=== PATIENT | female | born 1930 | race Caucasian/White ===

== ENCOUNTER 2017-03-21 11:24 | Observation (INO) | payer MEDICARE, BC ==
[2017-03-21] MEDS ORDERED: NORMAL SALINE 1,000 ML IV ONE (13:16)
[2017-03-21] MEDS ORDERED: diphenhydrAMINE HCL 50 MG/ML VIAL IV ONE (13:16)
[2017-03-21] MEDS ORDERED: METOCLOPRAMIDE HCL 5 MG/ML VIAL IV ONE (13:16)
[2017-03-21 13:18] LABS: Urine Bilirubin Negative (NEGATIVE); Urine Blood Negative /ul (NEGATIVE); Urine Ketone Negative (NEGATIVE); Urine Nitrite Negative (NEGATIVE); Urine Protein Negative (NEGATIVE); Urine Urobilinogen Normal (NORMAL)
[2017-03-21 13:20] LABS: Hematocrit 38.4 % (37.0-47.0); Hemoglobin 12.6 gm/dL (12.5-16.0); Mean Corpuscular Hemoglobin 32.1 pg (27-31); Mean Corpuscular Hgb Conc 32.8 g/dl (32-36); Mean Platelet Volume 9.6 fl (6.0-9.5); Neutrophil # 5.1 K/mm3 (1.3-6.0); Neutrophil % 64.9 % (42-75.0); Platelet Count 280 K/mm3 (150-450); Red Blood Count 3.92 M/mm3 (4.2-5.4); White Blood Count 7.9 K/mm3 (4.0-10.5)
[2017-03-21] MEDS ORDERED: diphenhydrAMINE HCL 50 MG/ML VIAL ONE (13:23)
[2017-03-21] MEDS ORDERED: METOCLOPRAMIDE HCL 5 MG/ML VIAL ONE (13:23)
[2017-03-21 13:25] LABS: Urine Appearance Clear; Urine Bacteria None Seen; Urine Color Yellow; Urine RBC None Seen /hpf (0-5); Urine WBC 0-5 /hpf (0-5)
--- NOTE | 2017-03-21 13:28 | ERNOTE ---
Dizziness ER Record Date of Service: 03/21/17 Presenting Symptoms: dizziness Time Seen by Provider: 03/21/17 12:59 Source: patient Exam Limitations: no limitations Immunizations: IMMUNIZATION HX Immunizations Up to Date No History of Influenza Vaccine No Hx Pneumococcal Vaccination No Allergies/Adverse Reactions: Allergies Allergy/AdvReac Type Severity Reaction Status Date / Time No Known Allergies Allergy Verified 03/21/17 11:44 Home Medications: HOME MEDICATIONS Acetaminophen [Tylenol] 650 mg PO BID 11/10/15 [Last Taken Unknown] Aspirin [Aspirin Chewable] 81 mg PO DAILY 11/10/15 [Last Taken Unknown] Enalapril Maleate [Vasotec] 20 mg PO DAILY 11/10/15 [Last Taken Unknown] Metoprolol Succinate [Toprol Xl] 25 mg PO DAILY 11/10/15 [Last Taken Unknown] Pravastatin Sodium [Pravachol] 40 mg PO HS 11/10/15 [Last Taken Unknown] Cholecalciferol [Vitamin D] 1,000 unit PO DAILY 03/21/17 [Last Taken Unknown] Glucosamine HCl/Chondr Landry A Na [Osteo Bi-Flex Caplet] 1 each PO DAILY 03/21/17 [ Last Taken Unknown] - History of Present Illness Narrative: Pt. comes in with c/o dizziness and headache for two days. Pt. states taht her L hinduism has been hurting her and the dizziness comes in waves but is not changed with position or movement. Pt. states that she has had two falls in the recent past related to RLE weakness from spinal stenosis and neuropathy. Pt. denies any NVD, fever, CP, palpitations, or new weakness, numbness, and tingling. Pt. denies any prehospital treatment. Review of Systems - Review of Systems Constitutional: Present: no symptoms reported. Absent: fever, chills, weakness , fatigue, malaise EYE: Present: no symptoms reported. Absent: eye pain, eye discharge, blurred vision, double vision, vision changes ENT: Present: no symptoms reported. Absent: nose pain, nose congestion, nasal drainage, sore throat Respiratory: Present: no symptoms reported. Absent: shortness of breath, cough , wheezing Cardiology: Present: no symptoms reported. Absent: chest pain, palpitations, syncope, edema Gastrointestinal/Abdominal: Present: no symptoms reported. Absent: nausea, vomiting, diarrhea, abdominal pain Genitourinary: Present: no symptoms reported. Absent: frequency, decreased urinary output Musculoskeletal: Present: no symptoms reported. Absent: back pain, joint pain Skin: Present: no symptoms reported. Absent: rash, change in color Neurological: Present: headache, dizziness/light-headedness. Absent: numbness, tingling All Other Systems: All systems neg except as marked - Patient's Past Medical History Patient History - Medical: Arthritis Patient History - Cardiac/Respiratory: Hypertension, Hyperlipidemia Patient History - Cancer: Colon Patient History - Surgical Procedures: Cardiac stent, Tubal Ligation, T & A Patient History - Other: None - Social History Living Situations: home Psych History: No pertinent hx Smoking Status: Never smoker - Immunizations Immunizations Up to Date: No Hx Pneumococcal Vaccination: No History of Influenza Vaccine: No Physical Exam - Physical Exam General Appearance: Present: wd/wn, alert, no apparent distress Head Exam: Present: normal inspection, no evidence of injury Eye Exam: Normal inspection: bilateral, PERRL: bilateral, EOMI: bilateral Ears, Nose, Throat: Present: normal ENT inspection, normal pharynx Neck: Present: normal inspection, nontender. Absent: lymphadenopathy (R), lymphadenopathy (L) Respiratory: Present: no respiratory distress, normal breath sounds, no accessory muscle use, chest nontender, lungs clear Cardiovascular/Chest: Present: regular rate, rhythm, no murmur, normal peripheral pulses Gastrointestinal/Abdominal: Present: normal bowel sounds, nontender, nondistended, soft, no organomegaly Back Exam: Present: normal inspection, normal range of motion, no CVA tenderness , no vertebral tenderness Extremity Exam: Present: normal inspection, non-tender, normal range of motion, no edema Neurological Exam: Present: alert, oriented, normal mood/affect, no motor/ sensory deficits, wicker worker II-XII nml as tested, other - rhomberg positive, eppley negative Skin Exam: Present: normal color, warm/dry. Absent: pallor, skin rash ED Progress - Date and Time Seen: Date and Time: 03/21/17 13:27 As pt. has had multiple recent falls with head injury and has non reproducible dizziness and godoy positive rhomberg feel that pt. needs CT of her head. 03/21/17 15:[address] results [address] Dr Hannah and she would like pt. admitted to hospital for acute lacunar infarct CVA. - Results and Orders Patient's Lab Results:: I have reviewed the patient's lab results. - Vital Signs Patient's Vital Signs:: I have reviewed the patient's vital signs. Vital Signs: Vital Signs 03/21/17 11:41 Temperature 36.7 C Pulse Rate 59 L Respiratory 14 Rate Blood Pressure 184/77 O2 Sat by Pulse 99 Oximetry - EKG EKG: RBBB, other - sinus ag EKG read: Reviewed by me EKG Comments: interp by Dr Livingston - CT/Ultrasound CT/Ultrasound Narrative: CT head notable for possible small lacuner infarct acute, subacute or chronic. CT chest without any PE. - Progress/Reassessment Chief Complaint: Dizziness Progress:: Unchanged Departure Clinical Impression: Lacunar infarct, acute - Departure Disposition: [facility] Condition: Fair Referrals: Ovidio Lopez MD [Primary Care Provider] -
[2017-03-21 13:39] LABS: Troponin I Less than 0.017 ng/ml (0.00-0.10)
[2017-03-21 13:42] LABS: ALT 18 U/L (19-67); AST 17 U/L (0-48); Albumin * 3.9 gm/dl (3.4-5.0); Alkaline Phosphatase * 76 U/L (50-170); Anion Gap 13.9 mmol/L (6.8-13.8); BUN/Creatinine Ratio 18.3 (9.0-21.6); Bilirubin, Total 0.4 mg/dL (0.0-1.1); Blood Urea Nitrogen 20 mg/dL (3-23); Ca. Corrected For Albumin 8.9 mg/dL (8.4-10.2); Calcium * 9.1 mg/dL (7.9-10.9); Carbon Dioxide 26.4 mmol/L (24-32.6); Chloride 102 mmol/L (97-106); Glucose * 91 mg/dL (70-110); Magnesium 1.8 mg/dL (1.2-2.8); Potassium 4.3 mmol/L (3.4-4.6); Sodium 138 mmol/L (132-142); TSH * 0.593 uIU/mL (0.358-3.74)
[2017-03-21] MEDS ORDERED: hydrALAZINE HCL 20 MG/ML VIAL ONE (16:02)
[2017-03-21] MEDS ORDERED: hydrALAZINE HCL 20 MG/ML VIAL IV ONE (16:02)
[2017-03-21] MEDS ORDERED: ACETAMINOPHEN 325 MG TABLET PO PRN (17:19)
[2017-03-21] MEDS: CLOPIDOGREL BISULFATE 75 MG TABLET PO SCH (17:32)
[2017-03-21] MEDS: ATORVASTATIN CALCIUM 40 MG TABLET PO SCH ×2 (17:32→20:07)
[2017-03-21] MEDS ORDERED: hydrALAZINE HCL 20 MG/ML VIAL IV PRN (17:44)
[2017-03-21] MEDS: METOPROLOL SUCCINATE 25 MG TABLET.SA PO SCH (18:07)
[2017-03-21] MEDS: ENALAPRIL MALEATE 20 MG TABLET PO SCH (18:07)
--- NOTE | 2017-03-21 20:31 | HP ---
Chief Complaint - Chief Complaint Date of Service: 03/21/17 Time of Service: 20:12 Chief Complaint: Dizziness History of Present Illness: 86 years old female adm to the hospital from the ER with reports of dizziness. Per family pt was at home doing light activity when she felt dizzy. She sat for a short time and resume work but later felt even worst. Family was concerned and brought her to the ER. She denies slurred speech, difficulty swallowing, weakness, headaches and blurred vision. Per family pt have history of frequent falls, 8 months ago she had a fall and sustained concussion. At the time pt stated she was feeling a little dizzy prior to fall but then it went away. pt stated she is compliant with her home medications , however blood pressure remain elevated despite its use. She report having an occasional beer daily or every other day 1-6 bottles. PMH significant for [place] with stents,hypertension, hyperlipidemia and colon cancer. In ER Ct head: small subcentimeter hypodensity of the right basal ganglia region. Possible small lacunar infract either acute, sub-acute or chronic. Blood pressure on adm 206/69 hydralazine given. Plan for adm an do CVA work up. Plan of care discussed with pt and family they verbalized understanding and agrees. - Patient's Past Medical History Patient History - Medical: Arthritis, Other - spinal stenosis Patient History - Cardiac/Respiratory: Hypertension, Hyperlipidemia, Myocardial Infarction - with stents Patient History - Cancer: Colon - resection Patient History - Surgical Procedures: Cataracts, Cardiac stent, Tubal Ligation , T & A Patient History - Other: None - Social History Living Situations: alone Abuse History: No History of abuse Psych History: No pertinent hx Smoking Status: Never smoker Have you smoked in the past 12 months: No Alcohol Use: occasionally Drug Use: none - Immunizations Immunizations Up to Date: No Hx Pneumococcal Vaccination: No History of Influenza Vaccine: No Review Of Systems (GEN) - Review of Systems Generalized/Overall Review: Present: No Symptoms Reported EENTM: Present: No Symptoms Reported Respiratory: Present: No Symptoms Reported Cardiac: Present: No Symptoms Reported Abdominal: Present: No Symptoms Reported Genitourinary: Present: No Symptoms Reported Musculoskeletal: Present: No Symptoms Reported Neurological: Present: No Symptoms Reported Skin: Present: No Symptoms Reported Immunizations: IMMUNIZATION HX Immunizations Up to Date No History of Influenza Vaccine No Hx Pneumococcal Vaccination No Allergies/Adverse Reactions: Allergies Allergy/AdvReac Type Severity Reaction Status Date / Time No Known Allergies Allergy Verified 03/21/17 11:44 Home Medications: HOME MEDICATIONS Acetaminophen [Tylenol] 650 mg PO BID 11/10/15 [Last Taken Unknown] Aspirin [Aspirin Chewable] 81 mg PO DAILY 11/10/15 [Last Taken Unknown] Enalapril Maleate [Vasotec] 20 mg PO DAILY 11/10/15 [Last Taken Unknown] Metoprolol Succinate [Toprol Xl] 25 mg PO DAILY 11/10/15 [Last Taken Unknown] Pravastatin Sodium [Pravachol] 40 mg PO HS 11/10/15 [Last Taken Unknown] Cholecalciferol [Vitamin D] 1,000 unit PO DAILY 03/21/17 [Last Taken Unknown] Glucosamine HCl/Chondr Landry A Na [Osteo Bi-Flex Caplet] 1 each PO DAILY 03/21/17 [ Last Taken Unknown] Exam - Exam Vital Signs: Vital Signs - Last Taken Temp 36.3 C L 03/21/17 16:23 Pulse 68 03/21/17 20:00 Resp 17 03/21/17 20:00 BP 174/60 03/21/17 20:00 Pulse Ox 100 03/21/17 16:23 Constitutional: Present: Alert, Oriented x3, Cooperative, Well developed, Elderly ENT Exam: Present: normal ENT inspection Eye Exam: bilateral eye: normal inspection Neck: Present: full range of motion Back Exam: Present: normal inspection Breasts: Present: Exam deferred Respiratory: Present: chest non-tender, lungs clear, normal breath sounds, no respiratory distress Cardiovascular/Chest: Present: normal peripheral pulses, regular rate, rhythm, no chest tenderness, no edema, systolic murmur Peripheral Pulses: carotid (R): 2+, carotid (L): 2+, dorsalis-pedis (R): 3+, dorsalis-pedis (L): 3+ Abdomen: Present: Normal bowel sounds, soft, nontender, nondistended /Rectal: Present: Exam deferred Extremity: Present: normal range of motion, non-tender, normal inspection, no pedal edema Skin Exam: Present: normal color, warm/dry Lymphatic: Present: no adenopathy Neurologic: Present: oriented x 3 Appearance: Present: appropriate appearance, appropriate insight Eye contact: Present: cooperative, good eye contact Thoughts: Present: normal thought pattern Diagnostic Studies: Laboratory Results WBC 7.9 K/mm3 (4.0-10.5) 03/21/17 13:10 RBC 3.92 M/mm3 (4.2-5.4) L 03/21/17 13:10 Hgb 12.6 gm/dL (12.5-16.0) 03/21/17 13:10 Hct 38.4 % (37.0-47.0) 03/21/17 13:10 MCV 98.0 fl (78-100) 03/21/17 13:10 MCH 32.1 pg (27-31) H 03/21/17 13:10 MCHC 32.8 g/dl (32-36) 03/21/17 13:10 RDW 13.0 % (11.5-14.0) 03/21/17 13:10 Plt Count 280 K/mm3 (150-450) 03/21/17 13:10 MPV 9.6 fl (6.0-9.5) H 03/21/17 13:10 Immature Gran % (Auto) 0.40 % (0.001-0.429) 03/21/17 13:10 Immature Gran # (Auto) 0.03 K/mm3 (0.000-0.0310) 03/21/17 13:10 Neutrophils % 64.9 % (42-75.0) 03/21/17 13:10 Lymphocytes % 22.9 % (20-51) 03/21/17 13:10 Monocytes % 7.7 % (0.0-9) 03/21/17 13:10 Eosinophils % 3.2 % (0.0-3.0) H 03/21/17 13:10 Basophils % 0.9 % (0.0-1.0) 03/21/17 13:10 Nucleated RBC % 0.0 k/mm3 (0-1) 03/21/17 13:10 Neutrophils # 5.1 K/mm3 (1.3-6.0) 03/21/17 13:10 Lymphocytes # 1.8 k/mm3 (1.5-3.5) 03/21/17 13:10 Monocytes # 0.6 k/mm3 (0.0-1.0) 03/21/17 13:10 Eosinophils # 0.3 k/mm3 (0.0-0.7) 03/21/17 13:10 Absolute Basophils 0.1 k/mm3 (0.0-0.1) 03/21/17 13:10 D-Dimer 0.87 mg/L (0.19-0.49) H 03/21/17 13:10 Sodium 138 mmol/L (132-142) 03/21/17 13:10 Plasma Sodium 138 mmol/L (130-142) 03/21/17 13:10 Potassium 4.3 mmol/L (3.4-4.6) 03/21/17 13:10 Chloride 102 mmol/L (97-106) 03/21/17 13:10 Carbon Dioxide 26.4 mmol/L (24-32.6) 03/21/17 13:10 Anion Gap 13.9 mmol/L (6.8-13.8) H 03/21/17 13:10 BUN 20 mg/dL (3-23) 03/21/17 13:10 Creatinine 1.09 mg/dL (0.4-1.4) 03/21/17 13:10 Est GFR (Non-Af Amer) 51 mL/min (60-130) L 03/21/17 13:10 BUN/Creatinine Ratio 18.3 (9.0-21.6) 03/21/17 13:10 Random Glucose 91 mg/dL (70-110) 03/21/17 13:10 Calcium 9.1 mg/dL (7.9-10.9) 03/21/17 13:10 Calcium Adj for Albumin 8.9 mg/dL (8.4-10.2) 03/21/17 13:10 Magnesium 1.8 mg/dL (1.2-2.8) 03/21/17 13:10 Total Bilirubin 0.4 mg/dL (0.0-1.1) 03/21/17 13:10 AST 17 U/L (0-48) 03/21/17 13:10 ALT 18 U/L (19-67) L 03/21/17 13:10 Alkaline Phosphatase 76 U/L (50-170) 03/21/17 13:10 Troponin I Less than 0.017 ng/ml (0.00-0.10) 03/21/17 13:10 Total Protein 7.0 gm/dL (6.2-8.2) 03/21/17 13:10 Albumin 3.9 gm/dl (3.4-5.0) 03/21/17 13:10 TSH 0.593 uIU/mL (0.358-3.74) 03/21/17 13:10 Urine Color Yellow 03/21/17 13:10 Urine Appearance Clear 03/21/17 13:10 Urine pH 6.0 pH (5.0-7.0) 03/21/17 13:10 Ur Specific [place] 1.010 SP.GR. (1.005-1.010) 03/21/17 13:10 Urine Protein Negative mg/dL (NEGATIVE) 03/21/17 13:10 Urine Glucose (UA) Negative mg/dL (NEGATIVE) 03/21/17 13:10 Urine Ketones Negative mg/dL (NEGATIVE) 03/21/17 13:10 Urine Blood Negative /ul (NEGATIVE) 03/21/17 13:10 Urine Nitrate Negative (NEGATIVE) 03/21/17 13:10 Urine Bilirubin Negative mg/dl (NEGATIVE) 03/21/17 13:10 Urine Urobilinogen Normal EU/dl (NORMAL) 03/21/17 13:10 Ur Leukocyte Esterase 25 /ul (NEGATIVE) H 03/21/17 13:10 Urine RBC None seen /hpf (0-5) 03/21/17 13:10 Urine WBC 0-5 /hpf (0-5) 03/21/17 13:10 Ur Epithelial Cells None seen /hpf (0-5) 03/21/17 13:10 Urine Bacteria None seen (NONE) 03/21/17 13:10 Urine Culture Comments Culture to follow 03/21/17 13:10 Assessment/Plan - Narrative Narrative: Acute ischemic infract- not progressing clinically, neurologically intact CT head:No acute intra-cranial hemorrhage or mass. small subcentimeter hypodensity of the right basal ganglia region. Permissive hypertension and hydralazine for SBP >180 and DBP > 80 Continue to monitor vitals signs and telemetry MRI head pending 2D echo pending lipid panel and A1c pending carotid duplex pending Pt stated she eat without difficulties. Continue with home dose of statin Aspirin was switched to Plavix TSH ---->0.593 Neuro check Q4hrs Elevated D- dimer on adm Dimer 0.87 CTA chest negative for PE incidental findings Thyroid lesion CTA chest negative for PE CTA chest Incidental findings 2cm low density lesion of the left thyroid gland with peripheral calcification. Pt was aware of lesion and is been followed, no further intervention at his time. Hypertensive BP 206/69 Hydralazine SBP >180 and DBP >80 Continue to monitor Hyperlipidemia Lipid panel noted continue with home dose of statin Heart healthy diet low cholesterol Code status: Full code with restrictions DVT ppx:SCD GI ppx: pepcid Time 40 minutes - Assessment/Plan (1) Lacunar infarct, acute Problem: Acute (2) Hypertension Problem: Chronic Qualifiers: Hypertension type: essential hypertension Qualified Code(s): I10 - Essential (primary) hypertension (3) Hyperlipidemia Problem: Chronic
[2017-03-22 06:25] LABS: Hemoglobin A1C 5.7 % (4.00-6.0)
[2017-03-22 06:31] LABS: Chol/HDL Risk Ratio 1.6 mg/dL (3.3-4.4)
[2017-03-22] MEDS: METOPROLOL SUCCINATE 25 MG TABLET.SA PO SCH (08:40)
[2017-03-22] MEDS: ENALAPRIL MALEATE 20 MG TABLET PO SCH (08:40)
[2017-03-22] MEDS: CLOPIDOGREL BISULFATE 75 MG TABLET PO SCH (08:40)
[2017-03-22] MEDS: DOCUSATE SODIUM 100 MG CAPSULE PO SCH ×2 (08:42→08:57)
[2017-03-22] MEDS ORDERED: CHOLECALCIFEROL 1,000 UNIT CAPSULE PO SCH (09:00)
[2017-03-22] MEDS ORDERED: METOPROLOL SUCCINATE 25 MG TABLET.SA PO SCH (09:00)
[2017-03-22] MEDS ORDERED: ENOXAPARIN SODIUM 40 MG/0.4 ML SYRG SC SCH (09:00)
[2017-03-22] MEDS ORDERED: ENALAPRIL MALEATE 20 MG TABLET PO SCH ×2 (09:00)
[2017-03-22 10:52] VITALS: BP 141/72
--- NOTE | 2017-03-22 13:07 | DS ---
(1) Lacunar infarct, acute Problem: Acute Description of Stay: ADMISSION DATE: 03/21/2017 DISCHARGE DATE: 03/22/2017 ADMISSION HPI by JADEN Alvarez: 86 years old female adm to the hospital from the ER with reports of dizziness. Per family pt was at home doing light activity when she felt dizzy. She sat for a short time and resume work but later felt even worst. Family was concerned and brought her to the ER. She denies slurred speech, difficulty swallowing, weakness, headaches and blurred vision. Per family pt have history of frequent falls, 8 months ago she had a fall and sustained concussion. At the time pt stated she was feeling a little dizzy prior to fall but then it went away. pt stated she is compliant with her home medications , however blood pressure remain elevated despite its use. She report having an occasional beer daily or every other day 1-6 bottles. PMH significant for [place] with stents,hypertension, hyperlipidemia and colon cancer. In ER Ct head: small subcentimeter hypodensity of the right basal ganglia region. Possible small lacunar infract either acute, sub-acute or chronic. Blood pressure on adm 206/69 hydralazine given. Plan for adm an do CVA work up. Plan of care discussed with pt and family they verbalized understanding and agrees. HOSPITAL COURSE: The patient was admitted to the hospital after presenting to the emergency department with complaints of dizziness and concern for a possible new lacunar infarct as noted on the head CT without contrast completed in the emergency department. During the patient's stay, her blood pressure remained elevated so her home enalapril was increased. We allowed for permissive hypertension over the first 24 hours of the patient's admission and then her goal blood pressure was adjusted to less than 140/90 mmHg. Brain MRI, bilateral carotid duplex ultrasound and echocardiogram were completed during her admission and have been outlined below. Patient was on aspirin prior to admission so she was switched to Plavix. Patient needs to be on a high intensity statin so she was switched to atorvastatin 40mg. the patient had an uneventful admission and was discharged home in stable condition. Of note, the patient will need to be scheduled for an outpatient thyroid ultrasound for further evaluation of the incidental 2 cm low-density lesion of the left thyroid gland with peripheral calcifications. FOLLOW-UP APPOINTMENTS: -Dr. Tomlinson [facility] follow-up on 04/05/2017 @ 9:30AM NEW OR CHANGED MEDICATIONS: -Atorvastatin 40mg PO at bedtime -Plavix 75mg PO daily -Enalapril 20mg PO daily RADIOLOGY REPORTS: CT of the head without contrast on 03/21/2017 showed: Age-related cortical atrophy and periventricular white matter chronic ischemic changes are present. Intracranial atherosclerotic calcifications noted. No acute intracranial hemorrhage. No midline shift or herniation. There is 314 demonstrates a tiny subcentimeter hypodensity within the right basal ganglia region which appears to be new since last examination from 2016. This could represent a small lacunar infarct, of indeterminate age. Difficult to be certain given small size. Could be acute, subacute or chronic. Correlate clinically. No obvious soft tissue swelling or scalp hematoma noted. School grossly intact, without signs of depressed skull fracture. Visualized portions of the paranasal sinuses are clear. Mastoid air cells are grossly clear. IMPRESSION: No acute intracranial hemorrhage or mass effect. Small subcentimeter hypodensity of the right basal ganglia region. Correlate clinically for possible small lacunar infarct, either acute, subacute, or chronic. CTA of the chest on 03/21/2017 showed: Negative for acute pulmonary thromboembolism. Negative for acute thoracic aortic findings. Thoracic aortic atherosclerosis noted. Mild cardiomegaly. Findings suggestive of potential heart failure. Correlate clinically. Coronary arterial atherosclerosis suggested. Incidental 2 cm low-density lesion of the left thyroid gland, with peripheral calcifications. Consider routine characterization by thyroid ultrasound. Brain MRI without contrast on 03/22/2017 showed: Small chronic lacunar infarct within the right extreme capsule/basal ganglia. This would correspond to the finding on the CT scan. Age-appropriate atrophy. No acute intracranial process. Bilateral carotid duplex ultrasound on 03/22/2017 showed: Mild right-sided plaque without evidence for hemodynamically significant stenosis. Mild to moderate left-sided plaque without evidence for hemodynamically significant stenosis. Normal antegrade flow in the vertebral arteries. Transthoracic 2-D echocardiogram on 03/22/2017 showed: Left ventricle: Normal in size. Moderate concentric LVH. Ejection fraction is normal at 59%. Wall motion is normal. Atria: Left atrium is mild to moderately dilated. Right atrium is borderline dilated. Contrast injection was performed and this study was negative for septal defect. Mitral valve: Possible diastolic dysfunction. No evidence of prolapse. Mild mitral regurgitation. Tricuspid valve: No stenosis. Trace regurgitation. Right ventricular systolic pressure is elevated at 42 mmHg. Pulmonary hypertension. Aortic valve: Opens well. No hemodynamically significant valvular aortic stenosis. Mild regurgitation. Pulmonic valve: No stenosis. Trace regurgitation. Great vessels: IVC is dilated. Social IVC collapse noted during a sniff test suggests an increased right atrial pressure. Pericardium/pleural: No pericardial effusion. Procedures Performed: none Results and Findings: Laboratory Tests 03/21/17 03/21/17 03/21/17 13:10 13:10 13:10 WBC 7.9 Hgb 12.6 Hct 38.4 MCV 98.0 Plt Count 280 D-Dimer 0.87 H Sodium 138 Plasma Sodium 138 Potassium 4.3 Chloride 102 Carbon Dioxide 26.4 Anion Gap 13.9 H BUN 20 Creatinine 1.09 Est GFR (Non-Af Amer) 51 L BUN/Creatinine Ratio 18.3 Random Glucose 91 Mean Blood Glucose Hemoglobin A1c Calcium 9.1 Calcium Adj for Albumin 8.9 Magnesium 1.8 Total Bilirubin 0.4 AST 17 ALT 18 L Alkaline Phosphatase 76 Troponin I Less than 0.017 Total Protein 7.0 Albumin 3.9 Triglycerides Cholesterol LDL Cholesterol VLDL Cholesterol HDL Cholesterol Cholesterol/HDL Ratio TSH 0.593 03/22/17 03/22/17 06:04 06:04 WBC Hgb Hct MCV Plt Count D-Dimer Sodium Plasma Sodium Potassium Chloride Carbon Dioxide Anion Gap BUN Creatinine Est GFR (Non-Af Amer) BUN/Creatinine Ratio Random Glucose Mean Blood Glucose 104 Hemoglobin A1c 5.7 Calcium Calcium Adj for Albumin Magnesium Total Bilirubin AST ALT Alkaline Phosphatase Troponin I Total Protein Albumin Triglycerides 44 Cholesterol 119 LDL Cholesterol 36 L VLDL Cholesterol 9 HDL Cholesterol 74 H Cholesterol/HDL Ratio 1.6 L TSH Discharge Disposition: Home self care Disposition: Home self-care Condition: Stable Discharge Activity: Activity as tolerated Discharge Diet: Other - Heart healthy diet Referrals: Ovidio Lopez MD [Primary Care Provider] - Problem Oriented Discharge Instructions to Patient/Family: Stroke Prevention, [id number], Low-Sodium Eating Plan Additional Patient Instructions (free text): FOLLOW-UP WITH DR. TOMLINSON ON 04/05/2017 @ 9:30AM Prescriptions (Any new or edited meds): Atorvastatin Calcium [Lipitor] 40 mg PO HS #30 tablet Clopidogrel Bisulfate [Plavix] 75 mg PO DAILY #30 tablet Enalapril Maleate [Vasotec] 20 mg PO Q12H #60 tablet Complete Home Medications List: Complete Home Medication List: Acetaminophen [Tylenol] 650 mg PO BID 11/10/15 Metoprolol Succinate [Toprol Xl] 25 mg PO DAILY 11/10/15 Cholecalciferol [Vitamin D] 1,000 unit PO DAILY 03/21/17 Glucosamine HCl/Chondr Landry A Na [Osteo Bi-Flex Caplet] 1 each PO DAILY 03/21/17 Atorvastatin Calcium [Lipitor] 40 mg PO HS #30 tablet 03/22/17 Clopidogrel Bisulfate [Plavix] 75 mg PO DAILY #30 tablet 03/22/17 Enalapril Maleate [Vasotec] 20 mg PO Q12H #60 tablet 03/22/17
--- NOTE | 2017-03-24 08:56 | ECHO ---
This report is available in the EMR
== END 2017-03-22 15:15 | disposition home or self-care (01) ==
LOC: ER 11:24 → MS 16:02 → INTOOBSV 16:02
PROVIDERS: ADMIT Internal Medicine; ATTEND Internal Medicine
DX: I63.8 Other cerebral infarction (principal); I10 Essential (primary) hypertension; E78.5 Hyperlipidemia, unspecified; M19.90 Unspecified osteoarthritis, unspecified site; I25.2 Old myocardial infarction
CPT/HCPCS: 36415; 70450; 70551; 71275; 80053; 80061; 81001; 83036; 83735; 84443; 84484; 85025; 85379; 87086; 93005; 93306; 93880; 96372; 96374; 96375; 99285; G0378